=== PATIENT | male | born 1995 | race Caucasian/White ===

== ENCOUNTER 2021-05-20 21:14 | Emergency (ER) | payer OTHER, SELFPAY ==
--- NOTE | ~2021-05-20 | XR_ITS ---
EXAMINATION: XR chest 1V portable DATE: 05/20/2021 22:54 INDICATION: Cough. TECHNIQUE: A single frontal view of the chest was obtained on 2 radiographs. COMPARISON: None. FINDINGS: The chest demonstrates clear lungs without pneumonia, pleural effusion, or pneumothorax. Th e heart size is normal. IMPRESSION: 1. No acute cardiopulmonary disease. Reviewed, dictated and finalized at location A.
[2021-05-20 21:19] VITALS: BP 151/88; PULSE 104; RESP 18; TEMP 36.6; O2SAT 98
--- NOTE | 2021-05-20 22:04 | PC.NURSE ---
pt reports fever of 99.6F prior to ED arrival, along with cough and congestion. denies it could be covid bc he retains his sense of taste and smell. no acute distress.
--- NOTE | 2021-05-20 22:43 | ED.URI ---
HPI - URI/Sore Throat General Chief Complaint: Upper Respiratory Infection Stated Complaint: Flu like symptoms, cough Time Seen by Provider: 05/20/21 21:57 Source: patient and RN notes reviewed Mode of arrival: ambulatory Limitations: no limitations History of Present Illness HPI Narrative: This is a 26 year old male smoker who presents for evaluation of URI symptoms. He developed symptoms of cold or flu 1 week ago. His symptoms started with sneezing, runny nose, congestion. He developed cough with congestion 4 days later. He states he has having cough with burning in his chest with cough. He states his chest burning has subsided but he is continuing to cough. He also reports subjective fever. He reports taking his temperature at home and it was 97.3 F. He created a formula that makes his thinks his temperature was 99.6 F even though thermometer did not show that. He denies shortness of breath, nausea, vomiting, diarrhea or abdominal pain. He has been vaccinated for covid. Related Data Home Medications Medication Instructions Recorded Confirmed aripiprazole [Abilifarmida Maintena] mg IM 05/20/21 Allergies Allergy/AdvReac Type Severity Reaction Status Date / Time No Known Allergies Allergy Verified 05/20/21 21:48 Review of Systems Review of Systems: All systems reviewed & are unremarkable except as noted in HPI and below PMFSH Past Medical History Medical History (Updated 05/20/21 @ 23:44 by Erin Retana MD) Bipolar disorder Social History Social History (Updated 05/20/21 @ 23:41 by Erin Retana MD) Smoking packs per day: 1 Smoking cigarettes per day: 20.0 Smoking status: Current every day smoker Exam Const: General: no acute distress and alert Orientation/consciousness: patient oriented x3 HENMT: Head: normocephalic and atraumatic Ears: hearing grossly normal bilaterally and TM's normal bilaterally General nose exam: Normal external nose present and Normal nares present Face and sinus: normal facial exam, sinuses nontender and face symmetric Mouth: Yes Normal oral and palatal mucosa present, Yes lip normal, Yes oropharynx normal and Yes moist mucous membranes Eyes: EOM: EOMs intact bilaterally Chest: Chest palpation & inspection: normal inspection of the chest Resp: Effort & Inspection: normal respiratory effort and no retractions Auscultation: clear to auscultation bilaterally Cardio: Rate: regular rate Rhythm: regular rhythm Heart sounds: no murmurs GI: GI Palp: Yes Soft to palpation, No Tenderness to palpation present (GI) and No Guarding due to palpation present (GI) Auscultation: normal bowel sounds Skin: General skin exam: normal color Rashes: no rashes Neuro: General: patient oriented x3, moves all extremities and CN's II-XI intact bilaterally Psych: Mental Status: mental status grossly normal Affect: normal affect Course Reevaluation(s) Reevaluation #1: PAtient denies any complaints. He was given albuterol inhaler with spacer and cough medication. I discussed xray is normal. He likely has viral URI. He declines covid test. Date: 05/20/21 Time: 23:42 Vital Signs Vital signs: Vital Signs Temperature 97.9 F 05/20/21 21:19 Pulse Rate 104 H 05/20/21 21:19 Respiratory Rate 18 05/20/21 21:19 Blood Pressure 151/88 H 05/20/21 21:19 Pulse Oximetry 98 05/20/21 21:19 Temperature 97.9 F 05/20/21 21:19 Pulse Rate 86 05/20/21 23:13 Respiratory Rate 15 05/20/21 23:13 Blood Pressure 133/85 05/20/21 23:13 Pulse Oximetry 99 05/20/21 23:13 MDM - URI/Sore Throat Lab Data Labs: Influenza A Screen Negative Reference Range: Negative Influenza B Screen Negative Reference Range: Negative Imaging Data Attestation: I personally reviewed and interpreted this imaging study as follows: My impression: chest xray
[2021-05-20] MEDS: ALBUTEROL SULFATE (*SP) AEROSOL 1 PUFF 2 PUFF INHALATION (22:55)
[2021-05-20] MEDS: BENZONATATE 100 MG CAPSULE 200 MG PO (23:02)
--- NOTE | 2021-05-20 23:02 | PC.NURSE ---
Per RT therapist, albuterol inhaler already administered.
[2021-05-20 23:13] VITALS: BP 133/85; PULSE 86; RESP 15; O2SAT 99
== END 2021-05-21 00:01 | disposition home or self-care (01) ==
PROVIDERS: Emergency Provider General Practice
DX: J06.9 Acute upper respiratory infection, unspecified (principal); F17.210 Nicotine dependence, cigarettes, uncomplicated
CPT/HCPCS: 71045; 87804; 99283; A9270